=== PATIENT | female | born 1940 | race Caucasian/White ===

== ENCOUNTER 2016-07-09 08:05 | Day surgery (SDC) | payer MEDICARE, OTHER ==
--- NOTE | ~2016-07-09 | EGD ---
EGD REPORT [facility] [address] [address] NAME: DELPHINE MCGUIRE : 36 STATUS : REG [facility]#: [id number] AGE: 75 ADM/REG DATE : 07/09/16 MR#: [id number] REPORT SERV DATE: 07/09/16 DICTATED BY: JUDITH MASON DATE: 07/09/16 REPORT STATUS : Draft [facility]ANS[facility]IBED BY: [facility] DATE: 07/09/16 Endoscopy Center Patient Name: Delphine Mcguire Date of : 1940 Attending MD: JUDITH MASON MD Procedure Date No Time: 07/09/2016 Procedure: Upper GI endoscopy Indications: Follow-up of acute gastric ulcer Referring MD: ADDISON HUNT Medicines: as per anesthesia Complications: No immediate complications. Procedure: Pre-Anesthesia Assessment: - ASA Grade Assessment: II - A patient with mild systemic disease. After obtaining informed consent, the endoscope was passed under direct vision. Throughout the procedure, the patient's blood pressure, pulse, and oxygen saturations were monitored continuously. The GIF H190 [id number] was introduced through the mouth, and advanced to the third part of duodenum. The upper GI endoscopy was accomplished without difficulty. The patient tolerated the procedure. Findings: The examined esophagus was normal. One superficial gastric ulcer was found in the gastric antrum. The lesion was 10 mm in largest dimension. Biopsies were taken with a cold forceps for histology. The cardia and gastric fundus were normal on retroflexion. The examined duodenum was normal. Impression: - Normal esophagus. - Gastric ulcer. Biopsied. - Normal examined duodenum. Recommendation: - Await pathology results. - Continue present medications. Procedure Code(s): --- Professional --- 52451, Esophagogastroduodenoscopy, flexible, transoral; with biopsy, single or multiple Diagnosis Code(s): --- Professional --- K25.9, Gastric ulcer, unspecified as acute or chronic, without hemorrhage or perforation EGD REPORT [address] [place] [address] NAME: DELPHINE MCGUIRE : 36 STATUS : REG [facility]#: [id number] AGE: 75 ADM/REG DATE : 07/09/16 MR#: [id number] REPORT SERV DATE: 07/09/16 DICTATED BY: JUDITH MASON. DATE: 07/09/16 REPORT STATUS : Draft TRANSCRIBED BY: [employer] DATE: 07/09/16 K25.3, Acute gastric ulcer without hemorrhage or perforation CPT copyright 2013 [employer]. All rights reserved. The codes documented in this report are preliminary and upon racetrack steward review may be revised to meet current compliance requirements. JUDITH MASON MD 07/09/2016 10:38 AM This report has been signed electronically. Number of Addenda: 0 Note Initiated On: 07/09/2016 10:13 AM Scope Withdrawal Time 0 hours 0 minutes [address] [place] [address] [place] [address]
[~2016-07-09 08:05] MED LIST: AMITIZA8 MCG PO; CALTRA600D PO; CARDCD180 PO; COUMADIN3 MG PO; ESTRACE1 MG PO; FLOVENT110 INH; FOSAMAX70 MG PO; GENOTROPIN SC; GENOTROPIN0.4 MG SC; HAIR SKIN AND NAILS; HCTZ25B PO; KLOR-CON M2020 MEQ PO; L40 PO; LEVOTHROID125 MCG PO; LEVOTHYROXIN125 MCG PO; LINZESS 145 M145 MCG PO; LYRICA150 MG PO; MACRO50B PO; NABUMETONE750 MG PO; NAP500 PO; PCET PO; PRILO PO; PROTONIX PO; SOMATAB PO; SYN125 PO; ULTRAM50 PO; VITAMIN D400 UNI1 PO; X5 PO; [UNRECOGNIZED DRUG - OTHER] IM
[2016-10-22] MEDS ORDERED: LINZESS 145 M145 MCG PO (14:03)
== END 2016-07-09 23:59 | disposition home or self-care (01) ==
LOC: DMU 08:05
PROVIDERS: Internal Medicine Gastroenterology
PROC: 0DB78ZX Excision of Stomach, Pylorus, Via Natural or Artificial Opening Endoscopic, Diagnostic (ICD-10-PCS; principal; 2016-07-09 09:30)
DX: K29.70 Gastritis, unspecified, without bleeding (principal); K25.3 Acute gastric ulcer without hemorrhage or perforation; F41.9 Anxiety disorder, unspecified; Z88.8 Allergy status to other drugs, medicaments and biological substances; Z79.899 Other long term (current) drug therapy
CPT/HCPCS: 88305; 88342

== ENCOUNTER 2016-10-26 09:35 | Day surgery (SDC) | payer MEDICARE, OTHER ==
[~2016-10-26] VITALS: Ht 167.6 cm; Wt 84.4 kg
--- NOTE | ~2016-10-26 | EGD ---
EGD REPORT [facility] [address] [address] NAME: DELPHINE MCGUIRE : 36 STATUS : REG [facility]#: [id number] AGE: 75 ADM/REG DATE : 10/26/16 MR#: [id number] REPORT SERV DATE: 10/26/16 DICTATED BY: JUDITH MASON DATE: 10/26/16 REPORT STATUS : Draft [facility]: [facility] DATE: 10/26/16 Endoscopy Center Patient Name: Delphine Mcguire Date of : 1940 Attending MD: JUDITH MASON MD Procedure Date No Time: 10/26/2016 Procedure: Upper GI endoscopy Indications: Follow-up of acute gastric ulcer Referring MD: ADDISON HUNT Medicines: as per anesthesia Complications: No immediate complications. Procedure: Pre-Anesthesia Assessment: - ASA Grade Assessment: III - A patient with severe systemic disease. After obtaining informed consent, the endoscope was passed under direct vision. Throughout the procedure, the patient's blood pressure, pulse, and oxygen saturations were monitored continuously. The GIF H190 [id number] was introduced through the mouth, and advanced to the third part of duodenum. The upper GI endoscopy was accomplished without difficulty. The patient tolerated the procedure. Findings: The examined esophagus was normal. The entire examined stomach was normal. The cardia and gastric fundus were normal on retroflexion. The examined duodenum was normal. Impression: - Normal esophagus. - Normal stomach. - Normal examined duodenum. Recommendation: - Continue present medications. Procedure Code(s): --- Professional --- 10160, Esophagogastroduodenoscopy, flexible, transoral; diagnostic, including collection of specimen(s) by brushing or washing, when performed (separate procedure) Diagnosis Code(s): --- Professional --- K25.3, Acute gastric ulcer without hemorrhage or perforation EGD REPORT [address] [address] NAME: DELPHINE MCGUIRE : 36 STATUS : REG [facility] PAT#: [id number] AGE: 75 ADM/REG DATE : 10/26/16 MR#: [id number] REPORT SERV DATE: 10/26/16 DICTATED BY: JUDITH MASON. DATE: 10/26/16 REPORT STATUS : Draft TRANSCRIBED BY: [employer] DATE: 10/26/16 CPT copyright 2013 [employer]. All rights reserved. The codes documented in this report are preliminary and upon medical biller coder review may be revised to meet current compliance requirements. JUDITH MASON MD 10/26/2016 12:15 PM This report has been signed electronically. Number of Addenda: 0 Note Initiated On: 10/26/2016 11:58 AM Scope Withdrawal Time 0 hours 0 minutes [address] [place] [id number]
== END 2016-10-26 23:59 | disposition home or self-care (01) ==
LOC: DMU 09:35
PROVIDERS: Internal Medicine Gastroenterology
PROC: 0DJ08ZZ Inspection of Upper Intestinal Tract, Via Natural or Artificial Opening Endoscopic (ICD-10-PCS; principal; 2016-10-26 10:30)
DX: K25.3 Acute gastric ulcer without hemorrhage or perforation (principal); K21.9 Gastro-esophageal reflux disease without esophagitis; E03.9 Hypothyroidism, unspecified; Z79.818 Long term (current) use of other agents affecting estrogen receptors and estrogen levels; Z79.52 Long term (current) use of systemic steroids; Z79.899 Other long term (current) drug therapy; Z90.710 Acquired absence of both cervix and uterus; Z90.49 Acquired absence of other specified parts of digestive tract; Z98.41 Cataract extraction status, right eye; Z98.42 Cataract extraction status, left eye; Z96.652 Presence of left artificial knee joint; Z88.5 Allergy status to narcotic agent; Z88.8 Allergy status to other drugs, medicaments and biological substances; Z98.890 Other specified postprocedural states